=== PATIENT | female | born 2000 | race Caucasian/White ===

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

== ENCOUNTER → 2020-11-03 | Outpatient (CLI) | payer OTHER | LOC: EXRD 15:15 | DX: R22.1 Localized swelling, mass and lump, neck (principal) | CPT/HCPCS: 76536 ==

== ENCOUNTER → 2020-11-25 | Outpatient (CLI) | payer OTHER | LOC: EXRD 14:12 | DX: E04.1 Nontoxic single thyroid nodule (principal) | CPT/HCPCS: 76536 ==